=== PATIENT | female | born 1950 | race Caucasian/White ===

== ENCOUNTER 2017-03-03 09:12 | Emergency (ER) | payer SELFPAY ==
[2017-03-03 09:22] VITALS: TEMP 99.2
[2017-03-03 09:23] VITALS: BMI 32.9
--- NOTE | 2017-03-03 09:32 | ED PDOC ---
Arrival/HPI - General Chief Complaint: Flu-like Symptoms Time Seen by Provider: 03/03/17 09:31 Historian: Patient - History of Present Illness Narrative History of Present Illness (Text): 03/03/17 09:50 Pratibha Baker is a 67 year old female, w/o significant PMHx, who presents to the emergency department accompanied by adult caregiver with complain of body aches, chills and intermittent fever for the past three days. Patient reports fever was the highest today at 102 F associated with diffuse bodyaches. Otherwise, Patient and adult caregiver denies worse headache of life, dizziness, visual changes , focal deficits, neck pain, drooling, dysphagia, dyspnea, shortness of breath, chest pain, palpitation, diaphoresis, cough, abd. pain, N/V/D, UTI sx. At the time of evaluation, appears comfortable, not in any apparent distress. Time/Duration: < week (3 days ) Symptom Onset: Sudden Symptom Course: Unchanged, Intermittent Quality: Aching Associated Symptoms (Text): 03/03/17 body aches, chills, fever Past Medical History - Provider Review Nursing Documentation Reviewed: Yes - Hematological/Oncological Hx Hepatitis C: Yes - Psychiatric Hx Substance Use: No - Surgical History Other/Comment: uterus prolapse surgery - Anesthesia Hx Anesthesia: Yes Hx Anesthesia Reactions: No Hx Malignant Hyperthermia: No Family/Social History - Physician Review Nursing Documentation Reviewed: Yes Family/Social History: Unknown Family HX Smoking Status: Never Smoked Hx Alcohol Use: No Hx Substance Use: No Allergies/Home Meds Allergies/Adverse Reactions: Allergies No Known Allergies Allergy (Verified 03/03/17 09:32) Review of Systems - Review of Systems Constitutional: Fevers (and chills ) Respiratory: absent: SOB Cardiovascular: absent: Chest Pain Gastrointestinal: absent: Abdominal Pain, Nausea, Vomiting Genitourinary Female: absent: Dysuria Musculoskeletal: Other (diffused body aches) Neurological: absent: Headache, Dizziness Physical Exam Vital Signs Temp Pulse Resp BP Pulse Ox 03/03/17 12:50 77 16 111/52 L 95 03/03/17 09:21 99.2 F 97 H 18 152/75 H 97 Temperature: Afebrile Blood Pressure: Normal Pulse: Regular Respiratory Rate: Normal Appearance: Positive for: Well-Appearing, Non-Toxic, Comfortable Pain Distress: Mild Mental Status: Positive for: Alert and Oriented X 3 - Systems Exam Head: Present: Normocephalic Conjunctiva: Present: Normal Ears: Present: NORMAL TM Mouth: Present: Moist Mucous Membranes, Normal Lips. No: Drooling Pharnyx: No: ERYTHEMA, EXUDATE Nose (Internal): Present: Normal Inspection Neck: Present: Trachea Midline. No: JVD, Lymphadenopathy, Bruit Respiratory/Chest: Present: Clear to Auscultation, Good Air Exchange. No: Respiratory Distress, Accessory Muscle Use Cardiovascular: Present: Regular Rate and Rhythm, Normal S1, S2. No: Murmurs Abdomen: Present: Normal Bowel Sounds. No: Tenderness, Distention, Peritoneal Signs, Rebound, Guarding Back: No: CVA Tenderness Upper Extremity: Present: Normal ROM. No: Deformity Lower Extremity: Present: Normal ROM. No: Edema, CALF TENDERNESS, Tenderness, Swelling, Deformity Neurological: Present: GCS=15, Speech Normal, Motor Func Grossly Intact, Normal Sensory Function, Norm Deep Tendon Reflexes Skin: Present: Warm, Dry, Normal Color. No: Rashes Psychiatric: Present: Alert, Oriented x 3 Medical Decision Making ED Course and Treatment: 03/03/17 Impression: 67 year old female with fever, body aches, and chills for the past 3 days. Plan: -- EKG -- Chest X-ray -- Labs -- Toradol, Zofran, Sodium Chloride -- Urinalysis -- Reassess and disposition Progress Notes: 03/03/17 11:19, on re-eval, pt resting comfortably in bed, not in any apparent distress. Pt still c/o some frontal headache overlying frontal sinus radiating to left maxillary sinuses. No edema, no erythema. Afebrile, hemodynamicaly stable. Non-toxic. Neuorlogicaly intact. Septic work up review, and appears without acute abnormalities. Lactic acid normal results, afebrile, no evidence of tachycardia. Troponin- negative. CXR, EKG- normal study. case discussed with ED attending, CT head recommend. AT 11:59, Pt reports moderate improvement in headache. pt resting comfortably in bed, not in any apparent distress. Afebrile, hemodynamicaly stable. Non-toxic. PusleOx 96% RA ENT: no acute findings neck: Supple, (-) meningeal sign, (-) carotid bruits B/L CVS: (+)S1S2, reg. Lungs: CTA B/L, Bs equal B/L. Abd: benign. Neurologicaly intact. Imaging review and case discussed with again. CT head appears normal, and discharge with outpt f/u recommend at this time. Pt has clinical findings c/w viral illness r/o sinusitis. Pt and adult caregiver advised on course of ds. ref. to f/u with PMD and ENT in 2-3 days for re-eavl. return to ED if any worsening or new changes. - Lab Interpretations Lab Results: 03/03/17 10:00 03/03/17 10:00 Lab Results 03/03/17 13:16: Urine Color Yellow, Urine Appearance Sl cloudy, Urine pH 6.0, Ur Specific [place] 1.010, Urine Protein Negative, Urine Glucose (UA) Negative, Urine Ketones Negative, Urine Blood Trace-intact H, Urine Nitrate Positive H, Urine Bilirubin Negative, Urine Urobilinogen 0.2, Ur Leukocyte Esterase Moderate H, Urine RBC 2 - 5, Urine WBC 25 - 30, Ur Epithelial Cells 4 - 5, Amorphous Sediment Few, Urine Bacteria Many 03/03/17 10:00: Influenza Typ A,B (EIA) Negative for flu a/b 03/03/17 10:00: Sodium 136, Chloride 102, Potassium 4.4, Carbon Dioxide 27, Anion Gap 11, BUN 14, Creatinine 0.7, Est GFR ( Amer) > 60, Est GFR (Non- Af Amer) > 60, Random Glucose 201 H, Calcium 8.9, Magnesium 1.8, Total Bilirubin 1.2, AST 48 H, ALT 57 H, Alkaline Phosphatase 62, Troponin I < 0.01, Total Protein 7.7, Albumin 4.0, Globulin 3.7, Albumin/Globulin Ratio 1.1 03/03/17 10:00: pO2 30, VBG pH 7.37, VBG pCO2 47.0, VBG HCO3 27.2, VBG Total CO2 28.6 H, VBG O2 Sat (Calc) 66.0 H, VBG Base Excess 1.3, VBG Potassium 4.1, Sodium 135.0, Chloride 102.0, Glucose 216 H, Lactate 1.5, FiO2 21.0, Venous Blood Potassium 4.1 03/03/17 10:00: PT 19.0 H, INR 1.71 H, APTT 31.8 03/03/17 10:00: WBC 5.0, RBC 4.56, Hgb 12.2, Hct 37.4, MCV 82.0, MCH 26.8, MCHC 32.6, RDW 14.6 H, Plt Count 90 L, Gran % 74.7 H, Lymph % (Auto) 18.7 L, [place] % ( Auto) 6.2 H, Eos % (Auto) 0.2 L, Baso % (Auto) 0.2, Gran # 3.75, Lymph # 0.9 L, [place] # 0.3, Eos # 0.0, Baso # 0.01 I have reviewed the lab results: Yes - RAD Interpretation Narrative RAD Interpretations (Text): 03/03/17 12:49 ccession No. 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 HISTORY: headache , sinus pressure COMPARISON: None available. TECHNIQUE: Axial computed tomography images were obtained through the head/brain without intravenous contrast. Radiation dose: Total exam DLP = 759 mGy-cm. This CT exam was performed using one or more of the following dose reduction techniques: Automated exposure control, adjustment of the mA and/or kV according to patient size, and/or use of iterative reconstruction technique. FINDINGS: HEMORRHAGE: No intracranial hemorrhage. BRAIN: No mass effect or edema. No atrophy or chronic microvascular ischemic changes. VENTRICLES: Unremarkable. No hydrocephalus. CALVARIUM: Unremarkable. PARANASAL SINUSES: There is mucosal thickening in the right maxillary sinus MASTOID AIR CELLS: Unremarkable as visualized. No inflammatory changes. OTHER FINDINGS: None. IMPRESSION: Mucosal thickening in the right maxillary sinus. No acute intracranial findings Radiology Orders: 03/03/17 09:40 CHEST TWO VIEWS (PA/LAT) [RAD] Stat 03/03/17 11:15 HEAD W/O CONTRAST [CT] Stat cession No. 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 TECHNIQUE: Chest PA and lateral FINDINGS: LUNGS: No active pulmonary disease. PLEURA: No significant pleural effusion identified. No pneumothorax apparent. CARDIOVASCULAR: Mild cardiomegaly. Mild aortic tortuosity OSSEOUS STRUCTURES: No significant abnormalities. VISUALIZED UPPER ABDOMEN: Normal. OTHER FINDINGS: None. IMPRESSION: No active disease. 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 - Medication Orders Current Medication Orders: Discontinued Medications Acetaminophen (Tylenol 325mg Tab) 975 mg PO STAT STA Stop: 03/03/17 11:17 Last Admin: 03/03/17 11:27 Dose: 975 mg MAR Pain/Vitals Document 03/03/17 11:27 HI (Rec: 03/03/17 11:27 HI [id number]) Pain Reassessment Is This A Pain ReAssessment? Yes Sleep Is patient sleeping during reassessment? 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 Yes Sleep Is patient sleeping during reassessment? No Presence of Pain Presence of Pain No Amoxicillin/Clavulanate Potassium (Augmentin 875 Mg-125 Mg Tab) 1 tab PO STAT STA PRN Reason: Protocol Stop: 03/03/17 12:02 Last Admin: 03/03/17 12:56 Dose: 1 tab Sodium Chloride (Sodium Chloride 0.9%) 1,000 mls @ 999 mls/hr IV .Q1H1M STA Stop: 03/03/17 10:41 Last Admin: 03/03/17 10:06 Dose: 999 mls/hr eMAR Start Stop Document 03/03/17 10:06 HI (Rec: 03/03/17 10:06 [place] [id number]) Intravenous Solution Start Date 03/03/17 Start Time 10:06 Ketorolac Tromethamine (Toradol) 30 mg IVP STAT STA Stop: 03/03/17 09:42 Last Admin: 03/03/17 10:07 Dose: 30 mg [facility] Pain Assessment Document 03/03/17 10:07 HI (Rec: 03/03/17 10:[id number]) Pain Reassessment Is this a pain reassessment? No Sleep Is patient sleeping during reassessment? No Presence of Pain Presence of Pain Yes Location Pain Location Body Site Generalized Description Pain Behavior Restlessness Alleviating Factors/Management Medication Techniques IVP Administration Document 03/03/17 10:07 HI (Rec: 03/03/17 10:07 [place] [id number]) Charges for Administration # of IVP Administrations 1 Re-Assess: [facility] Pain Assessment Document 03/03/17 11:07 HI (Rec: 03/03/17 11:27 [place] [id number]) Pain Reassessment Is this a pain reassessment? Yes Sleep Is patient sleeping during reassessment? No Presence of Pain Presence of Pain Yes Pain Scale Used Pain Scale Used Numeric Location Pain Location Body We[employer] Production Methylprednisolone (Solu-Medrol) 40 mg IVP STAT STA Stop: 03/03/17 11:17 Last Admin: 03/03/17 11:27 Dose: 40 mg IVP Administration Document 03/03/17 11:27 HI (Rec: 03/03/17 11:27 [place] [id number]) Charges for Administration # of IVP Administrations 1 Ondansetron HCl (Zofran Inj) 4 mg IVP ONCE ONE Stop: 03/03/17 09:42 Last Admin: 03/03/17 10:07 Dose: 4 mg IVP Administration Document 03/03/17 10:07 HI (Rec: 03/03/17 10:07 [place] [id number]) Charges for Administration # of IVP Administrations 1 - Scribe Statement The provider has reviewed the documentation as recorded by the Scribe Richelle Bynum Provider Scribe Attestation: All medical record entries made by the Scribe were at my direction and personally dictated by me. I have reviewed the chart and agree that the record accurately reflects my personal performance of the history, physical exam, medical decision making, and the department course for this patient. I have also personally directed, reviewed, and agree with the discharge instructions and disposition. Disposition/Present on Arrival - Present on Arrival Any Indicators Present on Arrival: No History of DVT/PE: No History of Uncontrolled Diabetes: No Urinary Catheter: No History of Decub. Ulcer: No History Surgical Site Infection Following: None - Disposition Have Diagnosis and Disposition been Completed?: Yes Diagnosis: Headache, Sinusitis Disposition: HOME/ ROUTINE Disposition Time: 12:05 Patient Plan: Discharge Condition: STABLE Discharge Instructions (ExitCare): Sinusitis (ED) Additional Instructions: ENCOURAGE FLUIDS TAKE MEDICATION PRESCRIBED FOLLOW UP WITH PMD IN 2-3 DAYS FOR RE-EVALUATION. RETURN TO ed IF ANY WORSENING OR NEW CHANGES. Prescriptions: Amoxicillin/Clavulanate [Augmentin 875 MG-125 MG] 1 tab PO BID #14 tab Ibuprofen [Motrin Tab] 400 mg PO Q6 #20 tab Referrals: [facility] [place] [Outside] - Follow up with primary Forms: [employer] (Bangladeshi)
[2017-03-03] MEDS ORDERED: Sodium Chloride 0.9% 1,000 ML IV STA (09:41)
[2017-03-03 10:11] LABS: VENOUS BLOOD GAS BASE EXCESS 1.3 mmol/L (0.0-2.0); VENOUS BLOOD PH 7.37 (7.32-7.43)
[2017-03-03 10:14] LABS: BASO # 0.01 K/mm3 (0.0-2.0); BASO % 0.2 % (0.0-3.0); EOS % 0.2 % (1.5-5.0); GRAN # 3.75 (1.4-6.5); GRAN % 74.7 % (50.0-68.0); HEMATOCRIT 37.4 % (36.0-48.0); LYMPH # 0.9 (1.2-3.4); LYMPH % 18.7 % (22.0-35.0); MEAN CORPUSCULAR HEMOGLOBIN 26.8 pg (25.0-35.0); MEAN CORPUSCULAR HGB CONC 32.6 g/dl (31.0-37.0); MONO # 0.3 (0.1-0.6); MONO % 6.2 % (1.0-6.0); PLATELET COUNT 90 10^3/uL (120.0-450.0); RED CELL DISTRIBUTION WIDTH 14.6 % (11.5-14.5)
[2017-03-03 10:22] LABS: INR 1.71 (0.93-1.08); PARTIAL THROMBOPLASTIN TIME 31.8 Seconds (25.1-36.5)
[2017-03-03 10:24] LABS: ALB/GLOB RATIO 1.1 (1.1-1.8); ALKALINE PHOSPHATASE 62 U/L (38-126); ALT/SGPT 57 U/L (7-56); AST/SGOT 48 U/L (14-36); BILIRUBIN,TOTAL 1.2 mg/dL (0.2-1.3); BLOOD UREA NITROGEN 14 mg/dL (7-21); CALCIUM 8.9 mg/dL (8.4-10.5); CARBON DIOXIDE 27 mmol/L (21-33); CHLORIDE 102 mmol/L (98-107); GFR AFRICAN-AMERICAN > 60; GLUCOSE,RANDOM 201 mg/dL (70-110); MAGNESIUM 1.8 mg/dL (1.7-2.2); POTASSIUM 4.4 mmol/L (3.6-5.0); SODIUM 136 mmol/L (132-148); TOTAL PROTEIN 7.7 g/dL (5.8-8.3)
[2017-03-03 10:35] LABS: TROPONIN I < 0.01 ng/mL
--- NOTE | 2017-03-03 10:46 | RAD ---
HISTORY: Sepsis Patient COMPARISON: No prior. TECHNIQUE: Chest PA and lateral FINDINGS: LUNGS: No active pulmonary disease. PLEURA: No significant pleural effusion identified. No pneumothorax apparent. CARDIOVASCULAR: Mild cardiomegaly. Mild aortic tortuosity OSSEOUS STRUCTURES: No significant abnormalities. VISUALIZED UPPER ABDOMEN: Normal. OTHER FINDINGS: None. IMPRESSION: No active disease.
[2017-03-03] MEDS ORDERED: MethylPREDNISolone 40 mg Vial IVP STA (11:16)
[2017-03-03] MEDS ORDERED: Amoxicillin-Clav 875-125 mg Tab PO STA (12:01)
--- NOTE | 2017-03-03 12:19 | CT ---
PROCEDURE: CT HEAD WITHOUT CONTRAST. HISTORY: headache , sinus pressure COMPARISON: None available. TECHNIQUE: Axial computed tomography images were obtained through the head/brain without intravenous contrast. Radiation dose: Total exam DLP = 759 mGy-cm. This CT exam was performed using one or more of the following dose reduction techniques: Automated exposure control, adjustment of the mA and/or kV according to patient size, and/or use of iterative reconstruction technique. FINDINGS: HEMORRHAGE: No intracranial hemorrhage. BRAIN: No mass effect or edema. No atrophy or chronic microvascular ischemic changes. VENTRICLES: Unremarkable. No hydrocephalus. CALVARIUM: Unremarkable. PARANASAL SINUSES: There is mucosal thickening in the right maxillary sinus MASTOID AIR CELLS: Unremarkable as visualized. No inflammatory changes. OTHER FINDINGS: None. IMPRESSION: Mucosal thickening in the right maxillary sinus. No acute intracranial findings
[2017-03-03 12:52] VITALS: BP 111/52; PULSE 77; RESP 16; O2SAT 95
[2017-03-03 13:32] LABS: URINE BILIRUBIN NEGATIVE (NEGATIVE); URINE BLOOD TRACE-INTACT (NEGATIVE); URINE GLUCOSE (UA) NEGATIVE (NEGATIVE); URINE KETONE NEGATIVE (NEGATIVE); URINE LEUKOCYTE ESTERASE MODERATE Leu/uL (NEGATIVE); URINE PROTEIN NEGATIVE mg/dL (<30 mg/dL); URINE UROBILINOGEN 0.2 E.U./dL (<1 E.U./dL)
[2017-03-03 13:36] LABS: URINE APPEARANCE SL CLOUDY (CLEAR); URINE COLOR YELLOW (YELLOW)
[2017-03-03 13:37] LABS: URINE AMORPHOUS SEDIMENT FEW; URINE BACTERIA MANY (NEG); URINE WBC 25 - 30 /hpf (0-6)
--- NOTE | 2017-03-03 13:43 | CARD ---
APPROVED REPORT EKG Measurement Heart [id number] <Conclusion> Normal sinus rhythm Left axis deviation LAHB
== END 2017-03-03 13:15 | disposition home or self-care (01) ==
LOC: ED 09:12
DX: R51 Headache (principal); J32.9 Chronic sinusitis, unspecified
CPT/HCPCS: 70450; 71020; 80053; 81001; 82803; 83735; 84484; 85025; 85610; 85730; 87040; 87086; 87181; 87804; 93005; 96374; 96375; 99284; J1885; J2405; J2920; J7040